=== PATIENT | male | born 1970 | race Two or more races ===

== ENCOUNTER 2019-09-09 01:29 | Inpatient (IN) | payer SELFPAY ==
[~2019-09-09] VITALS: Ht 182.9 cm; Wt 91.2 kg
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
[2019-09-09] MEDS ORDERED: ACETAMINOPHEN 325 MG TABLET. PO PRN (02:30)
[2019-09-09] MEDS ORDERED: VANCOMYCIN PER PHARMACY MC PRN (02:30)
[2019-09-09] MEDS ORDERED: ONDANSETRON PF 4 MG/2 ML VIAL. IV PRN (02:30)
[2019-09-09 02:42] LABS: BASO % 0 % (0-3); EOS # 0.4 x10^3/uL (0.0-0.7); EOS % 6 % (0-3); HEMATOCRIT 43.1 % (39.0-53.0); HEMOGLOBIN 14.6 g/dL (13.0-17.5); LYMPH # 3.2 x10^3/uL (1.0-4.8); LYMPH % 44 % (24-48); MEAN CORPUSCULAR HEMOGLOBIN 29 pg (25-35); MEAN CORPUSCULAR HGB CONC 34 g/dL (31-37); MEAN CORPUSCULAR VOLUME 86 fL (79-100); MONO # 0.6 x10^3/uL (0.0-1.1); MONO % 8 % (0-9); NEUT % 42 % (31-73); PLATELET COUNT 344 x10^3/uL (140-400); RED BLOOD COUNT 5.04 x10^6/uL (4.30-5.70); RED CELL DISTRIBUTION WIDTH 13.8 % (11.5-14.5); WHITE BLOOD COUNT 7.2 x10^3/uL (4.0-11.0)
[2019-09-09 02:48] LABS: CREATININE 1.1 mg/dL (0.7-1.3); GFR 70.9; POTASSIUM 4.1 mmol/L (3.5-5.1)
[2019-09-09 02:52] LABS: PROTHROMBIN TIME PATIENT 11.4 SEC (11.7-14.0)
[2019-09-09 02:54] LABS: ALBUMIN 3.8 g/dL (3.4-5.0); ALBUMIN/GLOBULIN RATIO 0.8 (1.0-1.7); TOTAL BILIRUBIN 0.2 mg/dL (0.2-1.0); TOTAL PROTEIN 8.4 g/dL (6.4-8.2)
[2019-09-09 03:00] VITALS: BP 132/93
[2019-09-09] MEDS ORDERED: VANCOMYCIN 2 GM in IV NORMAL SALINE 500ML BAG 500 ML IV ONE (03:00)
[2019-09-09] MEDS ORDERED: IV NORMAL SALINE 1000ML BAG 1,000 ML IV ONE (03:00)
--- NOTE | 2019-09-09 03:00 | NUR ---
The patient, DEVORAH HOYT, 49 y/o, M admitted by KARINA MENDOZA MD, was given written information regarding hospital policies, unit procedures and contact persons. Valuables were checked and left in the room.
--- NOTE | 2019-09-09 03:50 | RAD ---
Left Lower Extremity Venous Doppler Ultrasound History: Swelling Comparison: None Procedure: Color flow, duplex, spectral analysis and 2D images are obtained with and without compression in the area of the common femoral vein, superficial femoral vein - femoral vein junction, main femoral vein (superficial femoral vein) and popliteal vein. Veins of the proximal calf are also imaged. Findings: There is normal duplex flow, color flow and compressibility of all visualized vein segments. No evidence of deep venous thrombus is present. There is soft tissue edema. There is normal-appearing lymph nodes in the left groin. Impression: No evidence of DVT. Electronically signed by: Ludwin Oconnell III, MD (09/09/2019 3:47 AM) [facility]
--- NOTE | 2019-09-09 04:54 | NUR ---
Pharmacy Vancomycin Dosing Note S:Consulted to monitor and dose vancomycin started 09/09/19. O:DEVORAH HOYT is a 49 year old M with Cellulitis . Height: 6 feet, 0 inches Weight: 86.040523 kg [place] Body Weight: 77.60 Adjusted Body Weight: 80.96 Dosing Weight: Actual Other Antibiotics: LABS: Last BUN: 10 Last Creatinine: 1.1 Creatinine Clearance: 92 mL/min Last WBC: 7.2 Last Procalcitonin: Tmax (past 24 hours): Microbiology: I/O: Drug Levels: Last level: on at Last dose given 09/09/19 at 0330 Vancomycin Dosing: Loading Dose: 2000 mg x1 Dosing Weight: Actual Target Trough: 10-20 A: Based on: WT AND CRCL P: 1. Begin Vancomycin 1250 mg IV q12h 2. Follow up Trough level on 09/10/19 at 1530 3. Pharmacy will continue to monitor, follow and adjust therapy as needed. RADHA SANTOS RPH, 09/09/19 0455 Signed: 09/09/19 at 0455 by RADHA SANTOS RPH PHA
[2019-09-09 07:00] VITALS: BP 116/74
[2019-09-09] MEDS ORDERED: ONDANSETRON PF 4 MG/2 ML VIAL. IVP PRN (07:45)
[2019-09-09] MEDS ORDERED: ACETAMINOPHEN 500 MG TABLET PO PRN (07:45)
[2019-09-09] MEDS: CELECOXIB 100 MG CAPSULE. PO SCH ×2 (08:21→20:38)
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
[2019-09-09] MEDS ORDERED: CALCIUM CARBONATE 500 MG TAB.CHEW PO PRN (09:45)
[2019-09-09] MEDS ORDERED: NICOTINE 21MG PATCH. TD PRN (09:45)
[2019-09-09] MEDS ORDERED: ZOLPIDEM 5 MG TABLET. PO PRN (09:45)
[2019-09-09 11:00] VITALS: BP 104/62
--- NOTE | 2019-09-09 11:53 | NUR ---
SW following for discharge planning. Chart reviewed, discussed with RN, pt is from home. RN advise no SW needs at this time. Pt listed as self pay, will be seen by HCFS. RN does not anticipate discharge today. SW will continue to follow for any discharge planning needs.
[2019-09-09 15:02] VITALS: BP 110/68
[2019-09-09] MEDS: VANCOMYCIN 1.25 GM in IV NORMAL SALINE 250ML 250 ML IV SCH (15:35)
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
[2019-09-09 19:00] VITALS: BP 133/82
[2019-09-09] MEDS: LACTOBACILLUS RHAMNOSUS GG 1 CAPSULE. PO SCH (20:38)
[2019-09-09] MEDS: ACETAMINOPHEN/CODEINE 300/30MG TABLET. PO PRN (20:39)
[2019-09-09 23:00] VITALS: BP 132/85
[2019-09-10 03:00] VITALS: BP 122/79
[2019-09-10] MEDS: VANCOMYCIN 1.25 GM in IV NORMAL SALINE 250ML 250 ML IV SCH (04:36)
[2019-09-10 05:04] LABS: CREATININE 0.9 mg/dL (0.7-1.3); GFR 89.3
[2019-09-10 07:00] VITALS: BP 123/82
[2019-09-10] MEDS: CELECOXIB 100 MG CAPSULE. PO SCH (08:15)
[2019-09-10] MEDS: LACTOBACILLUS RHAMNOSUS GG 1 CAPSULE. PO SCH (08:15)
[2019-09-10] MEDS: ACETAMINOPHEN/CODEINE 300/30MG TABLET. PO PRN (08:18)
[2019-09-10 11:00] VITALS: BP 127/86
[2019-09-10] MEDS ORDERED: DOXY100T27 PO (11:10)
[2019-09-10] MEDS ORDERED: CEPH-264 PO (11:10)
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
--- NOTE | 2019-09-10 12:40 | NUR ---
SW consulted to provide resources and good Rx coupons. SW provided pt with healthcare, community resources and good rx coupon for Prescriptions. Pt accepted resources and verbalized understanding. Pt reported he will need transportation. RN will provide a cab pass. Pt denies other needs.
--- NOTE | 2019-09-10 13:58 | NUR ---
Discharge Note: DEVORAH HOYT Discharge instructions and discharge home medications reviewed with Patient and a copy given. All questions have been answered and understanding verbalized. The following instructions and handouts were given: Discharge Instructions with Wound Care and Follow Up Instructions, Prescriptions and Good Rx Coupons Discontinued lines and drains: PIV removed, Catheter intact. Patient discharged to Home with Self-Care via Cab (Cab Pass given from Hospital)
== END 2019-09-10 14:05 | disposition home or self-care (01) | DRG 603 ==
LOC: ER 01:29 → 5 SOUTH 02:43
PROVIDERS: ADMIT Family Medicine; ATTEND Family Medicine
DX: L03.116 Cellulitis of left lower limb (principal); F41.9 Anxiety disorder, unspecified; F17.210 Nicotine dependence, cigarettes, uncomplicated; F12.90 Cannabis use, unspecified, uncomplicated; Z88.0 Allergy status to penicillin; Z82.49 Family history of ischemic heart disease and other diseases of the circulatory system
CPT/HCPCS: 36415; 80053; 82565; 83605; 83735; 85025; 85610; 85651; 85730; 87040; 93971; J3370; J7030; J7040; J7050; 99285-25; G0378